=== PATIENT | female | born 1950 | race Caucasian/White ===

== ENCOUNTER 2020-05-08 08:07 | Inpatient (IN) | payer MEDICARE ==
[~2020-05-08] VITALS: Ht 162.6 cm; Wt 54.5 kg
[2020-05-08] VITALS (7 sets, daily range): BP systolic 119–166; BP diastolic 65–98; BMI 20.6
[2020-05-08 08:37] LABS: BILIRUBIN NEGATIVE (NEGATIVE); GLUCOSE 250 mg/dL (NEGATIVE); KETONE NEGATIVE (NEGATIVE); NITRITE NEGATIVE (NEGATIVE); UROBILINOGEN NORMAL (NORMAL)
[2020-05-08 08:38] LABS: AMORPHOUS SEDIMENT <1+ /lpf (NONE SEEN); BACTERIA FEW /hpf (NEGATIVE); EPITHELIAL CELLS 0-5 /hpf (0-5); RED CELLS - URINE OCC /hpf (0-5); WHITE CELLS - URINE OCC /hpf (NEGATIVE)
[2020-05-08 08:49] LABS: UDS - AMPHET NEGATIVE QUAL (NEGATIVE); UDS - BARB NEGATIVE QUAL (NEGATIVE); UDS - BENZO NEGATIVE QUAL (NEGATIVE); UDS - COCAINE NEGATIVE QUAL (NEGATIVE); UDS - OPIATE NEGATIVE QUAL (NEGATIVE); UDS - PCP NEGATIVE QUAL (NEGATIVE); UDS - THC POSITIVE QUAL (NEGATIVE)
--- NOTE | 2020-05-08 08:57 | NUR ---
PT BACK FROM CT LAB AT BEDSIDE
[2020-05-08 09:23] LABS: BASOPHILS 0.1 % (0-2); EOSINOPHILS 0 % (0-7); HEMATOCRIT 42.5 % (36.0-48.0); HEMOGLOBIN 14.5 g/dL (12-16); IMMATURE GRANULOCYTES 0.4 % (0-5); LYMPHOCYTES 7.8 % (15-50); MCH 32.2 pg (26.0-34.0); MCHC 34.1 g/dL (31.0-37.0); MCV 94.2 fL (80.0-100.0); MEAN PLATELET VOLUME 10.8 fL (7.4-10.4); NEUTROPHILS 89.7 % (40-80); PLATELET COUNT 222 10x3/uL (130-400); RBC 4.51 10x6/uL (4.00-5.40); RDW 13.2 % (11.5-14.5); WBC 9.5 10x3/uL (4.8-10.8)
[2020-05-08 09:31] LABS: CALC OSMOLALITY 268 mosm/kg (275-300); CALCIUM 8.4 mg/dL (8.5-10.1); CARBON DIOXIDE 26.1 mmol/L (21.0-32.0); CHLORIDE - SERUM 99 mmol/L (98-107); CREATININE - SERUM 0.8 mg/dL (0.6-1.3); GLUCOSE 137 mg/dL (74-106); POTASSIUM - SERUM 4.1 mmol/L (3.5-5.1); SODIUM 134 mmol/L (136-145); UREA NITROGEN 11 mg/dL (7-18); eGFR NON AFRICAN AMERICAN 75 mL/min (90-120)
[2020-05-08 09:35] LABS: APTT 27.1 SECONDS (22.8-39.4); INR 1.03 (0.85-1.17); PROTIME 13.4 SECONDS (11.6-15.0)
[2020-05-08 09:52] LABS: ALKALINE PHOSPHATASE 59 U/L (30-120); ALT (SGPT) 27 U/L (10-68); BILIRUBIN - TOTAL 0.33 mg/dL (0.2-1.3); CKMB 1.7 U/L (0.0-3.6); CREATINE KINASE 115 UL (21-215); MAGNESIUM - SERUM 2.1 mg/dL (1.8-2.4)
[2020-05-08 10:05] LABS: TROPONIN-I 0.085 ng/mL (0.000-0.060)
--- NOTE | 2020-05-08 10:05 | NUR ---
TROPONIN OF 0.[address] NAVA
--- NOTE | 2020-05-08 12:16 | NUR ---
NS 0.9% INFUSING AT 125 ML/H WITH 650 ML REMAINING UPON TRANSFER TO ROOM
--- NOTE | 2020-05-08 13:59 | NUR ---
MONITOR SR 82
[2020-05-08 15:48] LABS: CKMB 6.3 U/L (0.0-3.6); CREATINE KINASE 361 UL (21-215); TROPONIN-I 0.588 ng/mL (0.000-0.060)
--- NOTE | 2020-05-08 17:52 | NUR ---
PT TO MRI FOR BRAIN WITH/WITHOUT. PT CONSTANTLY MOVING DURING IMAGES. REPEATED MULT SEQUENCES, SHE WAS COMING OFF THE TABLE AND I STOPPED SCANNING AND WENT INTO SEE WHAT WAS WRONG. SHE STATED SHE WAS HURTING IN HER NECK/SHOULDERS AND BACK AND COULDN'T HOLD STILL AND WANTED TO STOP THE EXAM. I TOOK HER BACK TO HER ROOM AND SPOKE WITH YOKO HER NURSE AND HER . THE WITHOUT IMAGES WILL BE TURNED IN FOR A READING. TEST WAS CHANGED TO A WITHOUT STUDY ONLY AND CLOSED FOR DICTATION.
--- NOTE | 2020-05-08 18:01 | NUR ---
RETURNED FROM MRI-UNABLE TO LAY STILL. MANAGER HELPDESK HERE FOR PROCEDURE.
[2020-05-08 21:27] LABS: CKMB 11.6 U/L (0.0-3.6)
[2020-05-08 21:33] LABS: CREATINE KINASE 566 UL (21-215); TROPONIN-I 0.893 ng/mL (0.000-0.060)
[2020-05-09 04:00] VITALS: BP 126/81
[2020-05-09 05:37] LABS: BASOPHILS 0.1 % (0-2); EOSINOPHILS 0 % (0-7); HEMATOCRIT 41.3 % (36.0-48.0); HEMOGLOBIN 14.2 g/dL (12-16); IMMATURE GRANULOCYTES 0.1 % (0-5); LYMPHOCYTES 20.8 % (15-50); MCH 32.1 pg (26.0-34.0); MCHC 34.4 g/dL (31.0-37.0); MCV 93.2 fL (80.0-100.0); MONOCYTES 5.3 % (2-11); NEUTROPHILS 73.7 % (40-80); PLATELET COUNT 225 10x3/uL (130-400); RBC 4.43 10x6/uL (4.00-5.40); WBC 10.4 10x3/uL (4.8-10.8)
[2020-05-09 05:48] LABS: ALBUMIN 3.7 g/dL (3.4-5.0); ALKALINE PHOSPHATASE 49 U/L (30-120); ALT (SGPT) 24 U/L (10-68); BILIRUBIN - TOTAL 0.56 mg/dL (0.2-1.3); CALC OSMOLALITY 260 mosm/kg (275-300); CALCIUM 8.2 mg/dL (8.5-10.1); CARBON DIOXIDE 24.8 mmol/L (21.0-32.0); CHLORIDE - SERUM 96 mmol/L (98-107); CREATININE - SERUM 0.7 mg/dL (0.6-1.3); GLUCOSE 109 mg/dL (74-106); MAGNESIUM - SERUM 1.8 mg/dL (1.8-2.4); PHOSPHOROUS 2.8 mg/dL (2.5-4.9); PROTEIN - SERUM 6.8 g/dL (6.4-8.2); SODIUM 130 mmol/L (136-145); UREA NITROGEN 9 mg/dL (7-18); eGFR NON AFRICAN AMERICAN 88 mL/min (90-120)
[2020-05-09 05:49] LABS: POTASSIUM - SERUM 2.9 mmol/L (3.5-5.1)
--- NOTE | 2020-05-09 07:25 | NUR ---
ALERT AND ORIENTED. LUNGS CLEAR BILATERALLY. HEART SOUNDS S1 AND S2 HEARD IN ALL MUIR. BOWEL SOUNDS ACTIVE X 4. IV TO LEFT AC PATENT WITHOUT REDNESS. DENIES NEEDS. AT BEDSIDE. BED LOW. BED ALARM ON. CALL MELGAR AND PERSONAL ITEMS IN REACH. WILL CONTINUE TO MONITOR.
[2020-05-09 09:26] VITALS: BP 126/71
--- NOTE | 2020-05-09 12:37 | NUR ---
RESTING IN BED. DENIES NEEDS. AT BEDSIDE. WILL CONTINUE TO MONITOR.
[2020-05-09 12:56] VITALS: BP 131/77
[2020-05-09 13:36] VITALS: Ht 162.6 cm; Wt 54.5 kg
--- NOTE | 2020-05-09 16:03 | NUR ---
IV LEAKING TO LEFT AC. REMOVED WITH TIP INTACT. RESITED TO RFA AFTER TWO ATTEMPTS WITH 22GAUGE.
[2020-05-09 16:17] LABS: APPEARANCE - CSF CLEAR
[2020-05-09 16:18] LABS: RBC - CSF 980 cmm (0-0)
[2020-05-09 17:22] VITALS: BP 127/72
[2020-05-09 17:22] LABS: GLUCOSE - CSF 73 MG/DL (40-75); PROTEIN - CSF 58 MG/DL (12-60)
[2020-05-09 17:45] LABS: LYMPH - CSF 94 % (40-80); NEUT - CSF 6 % (0-6)
--- NOTE | 2020-05-09 17:45 | NUR ---
INCISION SITE REMAINS C/D/I. VITALS STABLE.
[2020-05-09 21:48] VITALS: BP 131/72
[2020-05-10 06:10] LABS: RAPID PLASMA REAGIN Non Reactive (Non Reactive)
[2020-05-10 07:22] LABS: BASOPHILS 0.1 % (0-2); EOSINOPHILS 0.1 % (0-7); HEMATOCRIT 36.5 % (36.0-48.0); HEMOGLOBIN 12.6 g/dL (12-16); IMMATURE GRANULOCYTES 0.3 % (0-5); LYMPHOCYTES 31.8 % (15-50); MCH 32.2 pg (26.0-34.0); MCHC 34.5 g/dL (31.0-37.0); MCV 93.4 fL (80.0-100.0); MEAN PLATELET VOLUME 11.4 fL (7.4-10.4); MONOCYTES 8.5 % (2-11); NEUTROPHILS 59.2 % (40-80); PLATELET COUNT 203 10x3/uL (130-400); RBC 3.91 10x6/uL (4.00-5.40)
[2020-05-10 08:37] LABS: CALC OSMOLALITY 271 mosm/kg (275-300); CALCIUM 7.7 mg/dL (8.5-10.1); CARBON DIOXIDE 24.3 mmol/L (21.0-32.0); CHLORIDE - SERUM 103 mmol/L (98-107); GLUCOSE 98 mg/dL (74-106); MAGNESIUM - SERUM 1.8 mg/dL (1.8-2.4); PHOSPHOROUS 2.1 mg/dL (2.5-4.9); POTASSIUM - SERUM 3.5 mmol/L (3.5-5.1); SODIUM 137 mmol/L (136-145); UREA NITROGEN 7 mg/dL (7-18)
[2020-05-10 08:43] LABS: CREATININE - SERUM 0.5 mg/dL (0.6-1.3); eGFR NON AFRICAN AMERICAN > 90 mL/min (90-120)
--- NOTE | 2020-05-10 08:51 | NUR ---
PT ALERT AND ORIENTED X4, AMBULATED TO BATHROOM AND BACK TO BED BY HERSELF WHILE IN ROOM. ADMINISTERED MEDICATION, NO DIFFICULTIES. ASSESSMENT PERFORMED. DENIES ANY NEEDS. FAMILY AT BEDSIDE. BED IN LOWEST POSITION, BED RAILS X2, CALL LIGHT WITHIN REACH. WILL CONTINUE TO MONITOR.
[2020-05-10 10:10] VITALS: BP 138/75
--- NOTE | 2020-05-10 10:58 | NUR ---
HUNG IV SODIUM PHOSPHATE FOR LOW PHOSPHORUS LEVEL, PER ELECTROLYTE PROTOCOL. RESTING COMFORTABLY IN BED, FAMILY AT BEDSIDE. DENIES ANY NEEDS. WILL CONTINUE TO MONITOR.
[2020-05-10 13:25] VITALS: BP 143/79
--- NOTE | 2020-05-10 13:57 | NUR ---
I have reviewed this patient and I concur with the Shift Assessment completed by the Licensed Practical Nurse today this shift.
--- NOTE | 2020-05-10 15:02 | NUR ---
PT RESTING COMFORTABLY IN BED, FAMILY AT BEDSIDE. DENIES ANY NEEDS. WILL CONTINUE TO MONITOR.
[2020-05-10] MEDS ORDERED: KEPPRA750 MG PO (15:44)
--- NOTE | 2020-05-10 17:01 | NUR ---
DC IV FROM RIGHT FOREARM WITH CATHETER TIP INTACT, COVERED WITH GAUZE AND TAPE. SIGNED ALL NECESSARY PAPERWORK FOR DISCHARGE. DENIES ANY NEEDS OR HELP.
[2020-05-12 11:09] LABS: FUNGUS STAIN Final report (())
[2020-05-12 14:09] LABS: CRYPTO AG - CSF Negative (Negative)
[2020-05-12 14:09] LABS: EHRLICHIA CHAFF IGG Negative (Neg:<1:64); EHRLICHIA CHAFF IGM Negative (Neg:<1:20); HGE IGG TITER Negative (Neg:<1:64); HGE IGM TITER Negative (Neg:<1:20)
[2020-05-12 15:11] LABS: WNVS - IGG Negative (Negative); WNVS - IGM Negative (Negative)
[2020-05-13 03:07] LABS: RMSF IGM 0.55 index (0.00-0.89)
--- NOTE | 2020-05-13 11:13 | EEG ---
PATIENT:JEREMY CAI MEDICAL RECORD: [id number] DATE OF : 52 LOCATION:D.223 D.MS ADMISSION DATE: 05/08/20 REFERRING PHYSICIAN: INTERPRETING PHYSICIAN: SHERIDAN BABIN MD DATE OF SERVICE: 05/08/2020 DATE OF EE05/08/2020. Room is [facility]. Ordered by Dr. Babin. CASE HISTORY: A 69-year-old female admitted with reported observed seizures, two at home and one in transport in ambulance described as generalized seizures. There is history of progressive memory disturbance accelerating over the last several months. No past history of infection, stroke, or head trauma. PROCEDURE: EEG done as a routine bedside portable recording using the standard 10-20 international electrode system. 16 channels used with is 17th EKG. DESCRIPTION: EEG opens with the patient awake and confusional with the records displaying diffuse background slowing. Posterior dominant rhythm is 5-6 Hz with brief best organization at 8-9 Hz with prominent mixed background theta and delta slowing throughout the record. There is frequent non-rhythmic theta and delta slowing with shifting predominance bilaterally with probable prominence of the theta and especially delta slowing in the right hemisphere. No epileptiform change such as spike, polyspike, or spike and wave was seen. No focal slowing or overt obvious amplitude asymmetry is seen. IMPRESSION: Moderately abnormal EEG with background slowing, this may be a postictal background slowing, but also suggestive of encephalopathy. No active seizure or evidence of a distinct seizure focus was appreciated in this recording. TRANSINT:[id number] Voice Confirmation ID: [id number] DOCUMENT ID: [id number] SHERIDAN BABIN MD at 1113 CC: [id number] DICTATION DATE: 05/08/201923 AUTO INSPECTION SPECIALIST: 05/09/20 0849 DIS IN 05/10/20 [facility] [address] [place] [address]
[2020-05-13 17:09] LABS: HSV 1 DNA (PCR) Negative (Negative); HSV 2 DNA (PCR) Negative (Negative)
== END 2020-05-10 17:02 | disposition home or self-care (01) | DRG 101 ==
LOC: D.ER 08:07 → D.MS 10:35
PROVIDERS: Family Medicine; ADMIT Family Medicine; ATTEND Family Medicine
PROC: 009U3ZX Drainage of Spinal Canal, Percutaneous Approach, Diagnostic (ICD-10-PCS; principal; 2020-05-09)
DX: G40.909 Epilepsy, unspecified, not intractable, without status epilepticus (principal); G93.40 Encephalopathy, unspecified; I24.8 Other forms of acute ischemic heart disease; F17.200 Nicotine dependence, unspecified, uncomplicated

== ENCOUNTER → 2020-06-03 12:59 | Outpatient (CLI) | payer MEDICARE ==
[2020-05-09 13:36] VITALS: BMI 20.6
[~2020-06-03 12:59] MED LIST: KEPPRA750 MG PO
== END | disposition home or self-care (01) ==
LOC: D.MRI 12:59
PROVIDERS: ATTEND Family Medicine
DX: R56.9 Unspecified convulsions (principal)

== ENCOUNTER 2020-06-26 13:00 | Outpatient (CLI) | payer MEDICARE ==
[2020-05-09 13:36] VITALS: BMI 20.6
== END 2020-06-26 14:00 | disposition home or self-care (01) ==
LOC: D.MAMMO 13:00
PROVIDERS: ATTEND Family Medicine
DX: Z12.31 Encounter for screening mammogram for malignant neoplasm of breast (principal)